=== PATIENT | male | born 1955 | race Caucasian/White ===

== ENCOUNTER 2019-06-19 19:51 | Observation (INO) ==
[2019-06-19 20:49] LABS: Basophils % 0.4 %; Eosinophils # 0.2 K/mcL (0.0-0.6); Eosinophils % 2.3 %; Hemoglobin 13.7 g/dL (12.9-16.9); Immature Granulocytes % 0.1 % (0-4); Lymphocytes # 1.6 K/mcL (0.6-4.6); Lymphocytes % 22.9 %; Mean Corpuscular HGB Conc 33.4 g/dL (31.6-35.5); Mean Corpuscular Hemoglobin 29.5 pg (28.0-33.3); Mean Corpuscular Volume 88.4 fL (83.0-100.0); Mean Platelet Volume 10.1 fL (9.4-12.4); Monocytes # 0.6 K/mcL (0.0-1.3); Monocytes % 8.2 %; Neutrophils # 4.6 K/mcL (1.6-8.9); Platelet Count 223 K/mcL (140-400); Red Blood Count 4.64 M/mcL (4.19-5.50); Red Cell Distribution Width 14.3 % (11.5-14.5); Segmented Neutrophils % 66.1 %; White Blood Count 6.9 K/mcL (4.3-11.1)
[2019-06-19 21:08] LABS: BUN/Creatinine Ratio 18 (6-26); Blood Urea Nitrogen 20 mg/dL (8-23); Calcium 9.1 mg/dL (8.6-10.3); Carbon Dioxide 34 mEq/L (23-29); Chloride 101 mEq/L (98-107); Glucose 113 mg/dL (70-105); Osmolality,Calculated 293 (280-300); Sodium 140 mEq/L (136-145); eGFR For African Americans > 60 (> 60); eGFR For Non-African Americans > 60 (> 60)
[2019-06-19 21:10] LABS: Troponin I 0.05 ng/mL (< 0.04)
[2019-06-19] MEDS ORDERED: *HR* Heparin 5,000 UNIT/ML VIAL IVP PRN ×2 (21:26)
[2019-06-19] MEDS ORDERED: *HR* Heparin 5,000 UNIT/ML VIAL IVP ONE (21:26)
[2019-06-19] MEDS ORDERED: Heparin 25,000 UNIT/250 ML D5W 25,000 UNIT/250 ML IV.SOLN IVC SCH (21:30)
[2019-06-19 21:40] LABS: Prothrombin Time 11.9 Seconds (9.4-12.1)
[2019-06-20] MEDS ORDERED: Naloxone 0.4 MG/ML INJ IVP PRN (00:46)
[2019-06-20] MEDS ORDERED: *HR* Heparin 5,000 UNIT/ML VIAL IVP PRN ×2 (00:46)
[2019-06-20] MEDS ORDERED: Nitroglycerin 0.4 MG TAB.SUBL SL PRN (00:46)
[2019-06-20] MEDS: Heparin 25,000 UNIT/250 ML D5W 25,000 UNIT/250 ML IV.SOLN IVC SCH ×2 (02:07→11:56)
[2019-06-20] MEDS: Gabapentin 300 MG CAPSULE PO SCH ×2 (08:09→14:57)
[2019-06-20] MEDS ORDERED: Aspirin Enteric Coated 81 MG Tablet PO SCH (09:00)
[2019-06-20] MEDS ORDERED: hydroCHLOROthiazide 25 MG TABLET PO SCH (09:00)
[2019-06-20] MEDS ORDERED: Isosorbide MONOnitrate (24 HR) 60 MG TAB.ER.24H PO SCH (10:45)
[2019-06-20 15:38] VITALS: BP 100/66
== END 2019-06-20 16:44 | disposition short-term general hospital (02) ==
LOC: EMEROOPIK 19:51 → INPPIK 19:51
PROVIDERS: ADMIT Family Medicine; ATTEND Family Medicine